=== PATIENT | female | born 1975 | race Caucasian/White ===

== ENCOUNTER 2024-02-06 08:34 | Outpatient (CLI) | payer OTHER, SELFPAY | END 2024-02-06 08:35 | disposition home or self-care (01) | LOC: NFLDREF 02-08 04:27 | PROVIDERS: PCP Family Medicine; Referring Provider Family Medicine; Visit Provider Nurse Practitioner Family | DX: N30.00 Acute cystitis without hematuria (principal); N30.01 Acute cystitis with hematuria | CPT/HCPCS: 87086; 87186 ==

== ENCOUNTER 2024-02-14 15:28 | Outpatient (CLI) | payer OTHER, SELFPAY | END 2024-02-14 15:29 | disposition home or self-care (01) | LOC: NFLDREF 02-15 09:29 | PROVIDERS: PCP Family Medicine; Referring Provider Family Medicine; Visit Provider Nurse Practitioner | DX: R30.0 Dysuria (principal); N30.91 Cystitis, unspecified with hematuria; N30.01 Acute cystitis with hematuria | CPT/HCPCS: 87086; 87186 ==